=== PATIENT | female | born 1955 | race Caucasian/White ===

== ENCOUNTER → 2018-10-02 | Outpatient (CLI) | payer BC | END | disposition home or self-care (01) | LOC: LAB 12:04 | PROVIDERS: ATTEND Obstetrics & Gynecology | DX: R53.83 Other fatigue (principal) | CPT/HCPCS: 80053; 83036; 84443; 85025 ==

== ENCOUNTER 2018-11-23 10:24 | Day surgery (SDC) | payer BC ==
[~2018-11-23] VITALS: Ht 157.5 cm; Wt 78.5 kg
[~2018-11-23 10:24] MED LIST: PROPOFOL 200 MG INJ ONE
[2018-11-23 11:03] VITALS: Ht 157.5 cm; Wt 78.5 kg
--- NOTE | 2018-11-23 11:19 | PREAC ---
Date/Time of Note Date/Time of Note DATE: 11/23/18 TIME: Anesthesia Eval and Record Evaluation Time Pre-Procedure Interview DATE: 11/23/18 TIME: 11:19 Age 63 Sex female NPO: 8 hrs Preoperative diagnosis screening Planned procedure colonoscopy Past Medical History Past Medical History: Includes GI: Obesity Surgery & Anesthesia Issues No known issue Meds Anticoagulation: No Beta Rashawn within 24 hr: No Reason Beta Rashawn not given: Pt. not on B-Rashawn Meds reviewed: Yes Allergies Coded Allergies: Sulfa (Sulfonamide Antibiotics) (Verified Allergy, Unknown, 11/23/18) Allergies Reviewed: Yes Labs/Studies Labs Reviewed: Reviewed by anesthesiologist test: N/A Pre-procedure Exam Airway: Adequate mouth opening, Adequate thyromental dist Mallampati: Mallampati II Teeth: Normal Lung: Normal Heart: Normal ASA Physical Status ASA physical status: 2 Emergency: None Planned Anesthetic General/MAC: Mask Planned Pain Management Parenteral pain med Pre-operative Attestations Prior to commencing anesthesia and surgery, the patient was re-evaluated, there was verification of: *The patient's identity *The results of appropriate recent lab work and preoperative vital signs *The above evaluation not changing prior to induction *Anesthetic plan, risk benefits, alternative and complications discussed with patient/family; questions answered; patient/family understands, accepts and wishes to proceed. MARIA C WOLF MD Nov 23, 2018 11:19
[2018-11-23] MEDS ORDERED: LIDOCAINE 2% (SDV) 5 ML INJ ONE (11:29)
[2018-11-23] MEDS ORDERED: PROPOFOL 20 ML ONE ×2 (11:29→11:30)
[2018-11-23] MEDS ORDERED: MIDAZOLAM 1 MG/ML 2 ML INJ ONE (11:29)
[2018-11-23 11:30] VITALS: BP 131/77; PULSE 89; RESP 20
[2018-11-23] MEDS ORDERED: ONDANSETRON 4 MG INJ IV PRN (11:30)
[2018-11-23] MEDS ORDERED: hydrALAzine 20 MG INJ IV PRN (11:30)
[2018-11-23] MEDS ORDERED: HYDROmorphONE 1 MG/5 ML IV SYRINGE IV PRN (11:30)
[2018-11-23] MEDS ORDERED: LABETALOL HCL 20MG INJ IV PRN (11:30)
[2018-11-23] MEDS ORDERED: EPHEDrine SULFATE 50 MG/5 ML SYG IV PRN (11:30)
--- NOTE | 2018-11-23 12:10 | PAC ---
Date/Time of Note Date/Time of Note DATE: 11/23/18 TIME: 12:09 Post-Anesthesia Notes Post-Anesthesia Note Last documented vital signs Vital Signs Date Temp Pulse Resp B/P (MAP) Pulse Ox O2 O2 Flow FiO2 Time Delivery Rate 11/23/18 98.2 89 20 131/77 96 Room Air 11:30 (95) Activity: WNL Respiratory function: WNL Cardiovascular function: WNL Mental status: Baseline Pain reasonably controlled: Yes Hydration appropriate: Yes Nausea/Vomiting absent: Yes Comments BP: 107/75 HR: 95 RR: 15 T: 98 SaO2: 97% MARIA C WOLF MD Nov 23, 2018 12:10
[2018-11-23 14:03] VITALS: BP 119/78; RESP 18
== END 2018-11-23 15:35 | disposition home or self-care (01) ==
LOC: GIL 10:24
PROVIDERS: ATTEND Internal Medicine Gastroenterology
DX: Z12.11 Encounter for screening for malignant neoplasm of colon (principal); K57.30 Diverticulosis of large intestine without perforation or abscess without bleeding; D12.4 Benign neoplasm of descending colon; D12.5 Benign neoplasm of sigmoid colon; D12.8 Benign neoplasm of rectum
CPT/HCPCS: 45380; 45385; 88305; J2250